=== PATIENT | female | born 1950 | race Caucasian/White ===

== ENCOUNTER 2016-10-30 08:08 | Day surgery (SDC) | payer BC, OTHER ==
[~2016-10-30 08:08] MED LIST: Acetaminophen TAB* 325 MG PO PRN; Buffered Lidocaine 1% SYRIN* 5 ML/SYR SYRINGE INTRADERM ONE
[2016-10-30] MEDS ORDERED: fentaNYL* 50 MCG/ML 2 ML VIAL (100 MCG VIAL) ONE (10:01)
[2016-10-30] MEDS ORDERED: Midazolam* 1 MG/ML 2 ML VIAL (2 MG) ONE ×2 (10:01→10:09)
[2016-10-30 11:05] VITALS: BP 111/60
[2016-10-30] MEDS ORDERED: Cyclopentolate 1% OPTH.SOL* 2 ML BTL ONE (12:14)
[2016-10-30] MEDS ORDERED: Flurbiprofen 0.03% OPTH.SOL* 2.5 ML BTL ONE (12:14)
[2016-10-30] MEDS ORDERED: Lidocaine 2% EPI 1:200000 MPF* 20 ML VIAL ONE (12:14)
[2016-10-30] MEDS ORDERED: Proparacaine 0.5% OPHTH.SOL* 15 ML BTL ONE (12:14)
[2016-10-30] MEDS ORDERED: acetaZOLAMIDE TAB* 250 MG ONE (12:14)
[2016-10-30] MEDS ORDERED: Neomycin/Polymy/Dex OPTH.SUSP* MAXITROL 0.1% 5 ML ONE (12:14)
[2016-10-30] MEDS ORDERED: Lidocaine 1% MPF* 2 ML VIAL ONE (12:14)
[2016-10-30] MEDS ORDERED: Phenylephrine 2.5% OPTH.SOL* 2 ML BTL ONE (12:14)
[2016-10-30] MEDS ORDERED: Povidone Iodine 5% OPTH* 30 ML BTL ONE (12:14)
--- NOTE | 2016-10-30 14:27 | OP ---
OPERATIVE NOTE: DATE OF OPERATION: 10/30/16 DATE OF : 52 SURGEON: Noam Paris MD PREOPERATIVE DIAGNOSIS: Cataract, right eye. POSTOPERATIVE DIAGNOSIS: Cataract, right eye. OPERATIVE PROCEDURE: Phacoemulsification, right eye with IOL. PROCEDURE: The patient was brought to the operating room after being given 1/2% Alcaine with epinep hrine drops in the preoperative area. The eye was prepped and draped in the usual sterile fashion. Sterile drape and eyelid speculum were placed. Again, topical 1/2% Alcaine with epinephrine was gi gil. A paracentesis incision was made at the 9 o'clock position with the No.75 blade. Clear cornea incision 2.2 x 2.2-mm was created at the 12 o'clock position starting at the anterior limbus using the 2.2-mm keratome. The anterior chamber was irrigated with 0.4 mL of 1% non-preservative intracam eral lidocaine and filled with DisCoVisc. A capsulorrhexis was completed using the cystotome and th e Utrata forceps. Hydrodissection was performed with balanced salt solution. The lens nucleus was r emoved with the Phacoemulsification handpiece without incident. Cortex was removed with the irrigat ion-aspiration handpiece. The capsular bag was re-inflated using DisCoVisc and an SN60WF 18.5 impla nt was inserted with the shooter. The irrigation-aspiration handpiece was used to remove all residu al DisCoVisc. The eye was refilled with balanced salt solution and the wound checked and found to b e watertight. Topical Maxitrol drops were given. [id number]/[facility] #: [id number]
== END 2016-10-30 10:59 | disposition home or self-care (01) ==
LOC: OREAST 08:08
PROVIDERS: ATTEND Specialist
DX: H25.811 Combined forms of age-related cataract, right eye (principal); Z79.899 Other long term (current) drug therapy; Z87.891 Personal history of nicotine dependence
CPT/HCPCS: A9270-GY; J2250; J3010; V2632

== ENCOUNTER 2016-11-06 07:44 | Day surgery (SDC) | payer BC ==
[~2016-11-06 07:44] MED LIST changes: +Buffered Lidocaine 0.9% SYRIN* 5 ML/SYR SYRINGE INTRADERM ONE; +Buffered Lidocaine 0.9% SYRIN* 5 ML/SYR SYRINGE ONE; -Buffered Lidocaine 1% SYRIN* 5 ML/SYR SYRINGE INTRADERM ONE; +Cyclopentolate 1% OPTH.SOL* 2 ML BTL ONE; +Flurbiprofen 0.03% OPTH.SOL* 2.5 ML BTL ONE; +Lidocaine 1% MPF* 2 ML VIAL ONE; +Lidocaine 2% EPI 1:200000 MPF* 20 ML VIAL ONE; +Neomycin/Polymy/Dex OPTH.SUSP* MAXITROL 0.1% 5 ML ONE; +Phenylephrine 2.5% OPTH.SOL* 2 ML BTL ONE; +Povidone Iodine 5% OPTH* 30 ML BTL ONE; +Proparacaine 0.5% OPHTH.SOL* 15 ML BTL ONE; +acetaZOLAMIDE TAB* 250 MG ONE
[2016-11-06] MEDS ORDERED: Midazolam* 1 MG/ML 5 ML VIAL (5 MG) ONE (08:48)
[2016-11-06] MEDS ORDERED: fentaNYL* 50 MCG/ML 2 ML VIAL (100 MCG VIAL) ONE (09:12)
[2016-11-06 09:36] VITALS: BP 143/72
--- NOTE | 2016-11-06 09:49 | OP ---
DATE OF OPERATION: 11/06/2016 - [facility] DATE OF : 1950. SURGEON: Noam Paris M.D. PREOPERATIVE DIAGNOSIS: Cataract left eye. POSTOPERATIVE DIAGNOSIS: Cataract left eye. OPERATIVE PROCEDURE: Phacoemulsification left eye with IOL. DESCRIPTION OF PROCEDURE: The patient was brought to the operating room after being given 1/2% Alcaine with epinephrine drops in the preoperative area. The eye was prepped and draped in the usual sterile fashion. Sterile drape and eyelid speculum were placed. Again, topical 1/2% Alcaine with epinephrine was given. A paracentesis incision was made at the 3 o'clock position with the No.75 blade. Clear cornea incision 2.2 x 2.2-mm was created at the 6 o'clock position starting at the anterior limbus using the 2.2-mm keratome. The anterior chamber was irrigated with 0.4 mL of 1% non-preservative intracameral lidocaine and filled with DisCoVisc. A capsulorrhexis was completed using the cystotome and the Utrata forceps. Hydrodissection was performed with balanced salt solution. The lens nucleus was removed with the Phacoemulsification handpiece without incident. Cortex was removed with the irrigation-aspiration handpiece. The capsular bag was re-inflated using DisCoVisc and an SN60WF 19.5 implant was inserted with the shooter. The irrigation-aspiration handpiece was used to remove all residual DisCoVisc. The eye was refilled with balanced salt solution and the wound checked and found to be watertight. Topical Maxitrol drops were given. [id number]/[facility] #: [id number] [facility]
== END 2016-11-06 09:38 | disposition home or self-care (01) ==
LOC: OREAST 07:44
PROVIDERS: ATTEND Specialist
DX: H25.812 Combined forms of age-related cataract, left eye (principal); H43.22 Crystalline deposits in vitreous body, left eye; Z87.891 Personal history of nicotine dependence
CPT/HCPCS: 36415; 86803; A9270-GY; J2250; J3010; V2632

== ENCOUNTER 2018-03-18 13:13 | Day surgery (SDC) | payer BC ==
[~2018-03-18 13:13] MED LIST changes: -Acetaminophen TAB* 325 MG PO PRN; -Buffered Lidocaine 0.9% SYRIN* 5 ML/SYR SYRINGE ONE; -Cyclopentolate 1% OPTH.SOL* 2 ML BTL ONE; -Flurbiprofen 0.03% OPTH.SOL* 2.5 ML BTL ONE; -Lidocaine 1% MPF* 2 ML VIAL ONE; -Lidocaine 2% EPI 1:200000 MPF* 20 ML VIAL ONE; -Neomycin/Polymy/Dex OPTH.SUSP* MAXITROL 0.1% 5 ML ONE; -Phenylephrine 2.5% OPTH.SOL* 2 ML BTL ONE; -Povidone Iodine 5% OPTH* 30 ML BTL ONE; -Proparacaine 0.5% OPHTH.SOL* 15 ML BTL ONE; -acetaZOLAMIDE TAB* 250 MG ONE
[2018-03-18] MEDS ORDERED: ceFAZolin 2 GM PREMIX in ORs 2 GM/50 ML BAG IVPB ONE (13:31)
[2018-03-18] MEDS ORDERED: Midazolam* 1 MG/ML 2 ML VIAL (2 MG) ONE (17:00)
[2018-03-18] MEDS ORDERED: fentaNYL* 50 MCG/ML 2 ML VIAL (100 MCG VIAL) ONE (17:00)
[2018-03-18] MEDS ORDERED: Bupivacaine 0.25% W/EPI* 10 ML SDV ONE (18:06)
[2018-03-18] MEDS ORDERED: PROCHLORPERAZINE INJ 5 MG/ML 2 ML VIAL IV PRN (18:08)
[2018-03-18] MEDS ORDERED: Ondansetron INJ* 2 MG/ML VIAL IV PRN (18:08)
[2018-03-18] MEDS ORDERED: Naloxone* 0.4 MG/ML 1 ML VIAL IV PRN (18:08)
[2018-03-18] MEDS ORDERED: Acetaminophen TAB* 325 MG PO PRN (18:08)
[2018-03-18] MEDS ORDERED: HYDROcodone/ACETAMIN 5-325 MG* 1 TAB PO PRN ×2 (18:08)
[2018-03-18] MEDS ORDERED: fentaNYL* 50 MCG/ML 2 ML VIAL (100 MCG VIAL) IV PRN (18:08)
[2018-03-18] MEDS ORDERED: DiMENhydriNATE IV* 50 MG/ML VIAL IV PUSH PRN (18:08)
[2018-03-18] MEDS ORDERED: Famotidine IV* 10 MG/ML 2 ML (20 mg) ONE (18:30)
[2018-03-18] MEDS ORDERED: Ketorolac INJ* 30 MG/ML 1 ML VIAL ONE (18:30)
[2018-03-18] MEDS ORDERED: Propofol* 10 MG/ML 20 ML BTL IV PUSH ONE (18:30)
[2018-03-18] MEDS ORDERED: Dexamethasone IV* 4 MG/ML 1 ML (4 MG) ONE (18:30)
[2018-03-18] MEDS ORDERED: Lidocaine 2% PF * 5 ML VIAL ONE (18:30)
--- NOTE | 2018-03-18 18:38 | BRIEFOPN ---
Brief Operative Note - Surgery Procedures: Procedures Pre-OP Diagnoses: R groin mass Post-op Diagnosis: same Procedure: excisional biopsy of right groin mass Surgeon: Bertin Asst: Vince Anethesia: GA with LMA EBL: minimal IVF: crystalloid Specimen: r mass c/w lymph node sent fresh Drains: none
[2018-03-18 19:42] VITALS: BP 148/69
== END 2018-03-18 20:00 | disposition home or self-care (01) ==
LOC: OR 13:13
PROVIDERS: ATTEND Surgery
DX: C77.4 Secondary and unspecified malignant neoplasm of inguinal and lower limb lymph nodes (principal); Z87.891 Personal history of nicotine dependence; I10 Essential (primary) hypertension
CPT/HCPCS: 88184; 88185; 88187; 88188; 88189; 88305; 88333; 88341; 88342; J0690; J1100; J1885; J2250; J2704; J3010

== ENCOUNTER 2018-05-17 09:07 | Emergency (ER) | payer BC ==
[2018-05-17] MEDS ORDERED: NS 0.9% 1000 ML* 1,000 ML IV ONE (09:28)
--- NOTE | 2018-05-17 09:39 | ED ---
GI/ HPI - HPI Summary HPI Summary: Pt is a 68 y/o female who presents to the ED c/o N/V/D. She c/o constipation, abdominal distention, and abdominal discomfort for the past 5 days. Last night she began to have N/V, GILL, and lightheadedness. Pt denies any CP, SOB, diarrhea , fever, or urinary symptoms. She took nausea medications this morning. Pt denies taking any iron supplements. 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 Pt sees Dr. Perez for the CA. She had a tumor removed in her groin and possible has a bowel tumor, although she has not received the endoscopy results yet. PMHx HTN and hernias. - History of Current Complaint Chief Complaint: EDAbdPain Time Seen by Provider: 05/17/18 09:24 Stated Complaint: VOMITING/NO BM FOR 5 DAYS Hx Obtained From: Patient Onset/Duration: Started Days Ago - 5, Worse Since Timing: Constant Pain Intensity: 8 Location of Pain: Diffuse Associated Signs and Symptoms: Positive: Nausea, Vomiting, Constipation, Lightheadedness, Abdominal Pain. Negative: Diarrhea, Fever Alleviating Factor(s): Nothing - Additional Pertinent History Primary Care Physician: [id number] - Allergy/Home Medications Allergies/Adverse Reactions: Allergies Allergy/AdvReac Type Severity Reaction Status Date / Time nitrofurantoin Allergy Severe Difficulty Verified 04/20/18 09:47 [From Macrodantin] Breathing bee pollen Allergy Hives/Diff. Verified 05/14/18 08:12 Breathing/I tching bee venom protein (honey bee) Allergy Hives/Diff. Verified 05/14/18 08:12 Breathing/I tching BEES Allergy Severe HIVES, Uncoded 04/07/18 12:42 NECK SWELLS Home Medications: Home Medications Ondansetron TAB* [Zofran 4 MG Tab*] 4 mg PO Q4H PRN 05/17/18 [History Confirmed 05/17/18] Prochlorperazine Maleate 10 mg PO Q6H PRN 05/17/18 [History Confirmed 05/17/18] PMH/Surg Hx/FS Hx/Imm Hx Endocrine/Hematology History: Reports: Hx Anemia - osteopenia Denies: Hx Diabetes, Hx Thyroid Disease Cardiovascular History: Reports: Hx Hypertension - ON MEDICATION FOR, Other Cardiovascular Problems/Disorders - HISTORY OF ANKLE SWELLING IN THE PAST, NONE PRESENTLY Denies: Hx Congestive Heart Failure, Hx Pacemaker/ICD Respiratory History: Denies: Hx Asthma, Hx Chronic Obstructive Pulmonary Disease (COPD) GI History: Reports: Other GI Disorders - hernia repair denies N/V/D NO PAIN Denies: Hx Ulcer History: Denies: Hx Dialysis, Hx Renal Disease, Other Problems/Disorders Musculoskeletal History: Reports: Hx Arthritis - BEGINNING OF HANDS, NECK Denies: Hx Osteoporosis Sensory History: Reports: Hx Cataracts - BILATERAL, Hx Contacts or Glasses - GLASSES Denies: Hx Hearing Aid Opthamlomology History: Reports: Hx Cataracts - BILATERAL, Hx Contacts or Glasses - GLASSES Neurological History: Reports: Hx Migraine - HX OF IN THE PAST Psychiatric History: Denies: Hx Panic Disorder - Cancer History Cancer Type, Location and Year: small cell neuroendocrine carcinoma Hx Chemotherapy: No Hx Radiation Therapy: No - Surgical History Surgery Procedure, Year, and Place: RIGHT SHOULDER ORIF W/ PRE-OP NERVE BLOCK . RIGHT SHOULDER REVERSE REPLACEMENT. HERNIA X 2- WITH MESH. C- SECTION X3. LEFT KNEE MENISCUS REPAIR. CATARACT BILATERAL. 03/18/18 Rt GROIN - LUMP REMOVED & BIOPSY Hx Anesthesia Reactions: No - Immunization History Date of Tetanus Vaccine: Up to date Date of Influenza Vaccine: Fall 2011 Infectious Disease History: No Infectious Disease History: Reports: Hx Shingles Denies: Hx Clostridium Difficile, Hx Hepatitis, Hx Human Immunodeficiency Virus (HIV), Hx of Known/Suspected MRSA, Hx Tuberculosis, Traveled Outside the [place] in Last 30 Days - Family History Known Family History: Negative: Other - colon CA - Social History Alcohol Use: Weekly Hx Substance Use: No Substance Use Type: Reports: None Hx Tobacco Use: Yes Smoking Status (MU): Former Smoker Amount Used/How Often: 2 PPD X 20 YEARS Length of Time of Smoking/Using Tobacco: 20 YEARS Have You Smoked in the Last Year: No Review of Systems Negative: Fever Negative: Chest Pain Negative: Shortness Of Breath Positive: Abdominal Pain, Vomiting, Nausea, Other - constipation, distention. Negative: Diarrhea Genitourinary: Negative Neurological: Other - Lightheadedness Positive: Headache All Other Systems Reviewed And Are Negative: Yes Physical Exam - Summary Physical Exam Summary: Appearance: Well appearing, no pain distress Skin: warm, dry, reflects adequate perfusion Head/face: normal Eyes: EOMI, LOAN ENT: mucous membranes tacky Neck: supple, non-tender Respiratory: CTA, breath sounds present Cardiovascular: RRR, pulses symmetrical Abdomen: non-tender, soft, distended, midline surgical scar, non-reducible midline umbilical hernia with tenderness, some tympany Bowel Sounds: decreased Musculoskeletal: normal, strength/ROM intact Neuro: normal, sensory motor intact, A&Ox3 Triage Information Reviewed: Yes Vital Signs On Initial Exam: Initial Vitals Temp Pulse Resp BP Pulse Ox 98.0 F 71 16 151/83 97 05/17/18 09:14 05/17/18 09:14 05/17/18 09:14 05/17/18 09:14 05/17/18 09:14 Vital Signs Reviewed: Yes Procedures - Procedure Summary Procedure Summary: Soap suds enema. Pt had a BM afterwards with relief. Diagnostics - Vital Signs Vital Signs Temp Pulse Resp BP Pulse Ox 05/17/18 09:14 98.0 F 71 16 151/83 97 - Laboratory Result Diagrams: 05/17/18 09:36 05/17/18 09:36 Lab Statement: Any lab studies that have been ordered have been reviewed, and results considered in the medical decision making process. - Radiology CXR Radiology Interpretation Completed By: Radiologist Summary of Radiographic Findings: NO ACTIVE CARDIOPULMONARY DISEASE. ED physician reviewed radiology report. - CT CT A/P CT Interpretation Completed By: Radiologist Summary of CT Findings: 1. THERE IS DISTENTION WITH MILD DILATATION OF THE ASCENDING AND TRANSVERSE COLON WHICH APPEARS FLUID-FILLED. THERE IS LARGE AMOUNT OF STOOL WITHIN THE DISTAL DESCENDING AND RECTOSIGMOID COLON. 2. THERE IS DIVERTICULOSIS OF THE COLON. 3. THERE IS MILD DISTENTION OF SMALL BOWEL. 4. THERE IS A SMALL AMOUNT OF PERIHEPATIC ASCITES. ED physician reviewed radiology report. - EKG 10:10 Cardiac Rate: Bradycardia - 57 bpm EKG Rhythm: Sinus Rhythm ST Segment: Normal Summary of EKG Findings: Nl axis, nl intervals Re-Evaluation - Re-Evaluation First Eval Re-Evaluation Time: 11:10 Change: Unchanged Comment: Performed a soap suds enema. Second Eval Re-Evaluation Time: 11:50 Change: Improved Comment: Pt had a BM and feels much better. GIGU Course/Dx - Course Course Of Treatment: Nurse's note reviewed. Patient presents with no bowel movement for several days and abdominal distention. It is soft and only minimally tender. There is no definite obstruction but there is air fluid levels proximal to significant constipation. There is no impaction in the rectal vault. I gave the patient soapsuds enema with resulting large bowel movement. Some of the distention relieved. She'll be discharged on bowel regimen with return instructions - Diagnoses Differential Diagnoses - Female: Other - Small bowel obstruction, large bowel obstruction, metastatic cancer, constipation Provider Diagnoses: History of neuroendocrine cancer, Constipation, Vomiting Discharge - Sign-Out/Discharge Documenting (check all that apply): Patient Departure - Discharge - Discharge Plan Condition: Improved Disposition: HOME Prescriptions: Bisacodyl SUPP* [Dulcolax Supp*] 10 mg IL DAILY PRN #7 supp PRN Reason: Constipation Polyethylene Glycol 3350 BTL* [Miralax] 17 g PO TID PRN #1 btl PRN Reason: Constipation Patient Education Materials: Constipation (ED) Referrals: Chris Velasquez MD [Primary Care Provider] - Wolfgang Perez MD [Medical Doctor] - Additional Instructions: Drink plenty of fluids, natural fruit juices such as apple and prune may help. Home Fleet enemas as needed. Return with fever, increased abdominal distention , vomiting, worse or other concerns. - Billing Disposition and Condition Condition: IMPROVED Disposition: Home - Attestation Statements Document Initiated by Boy: Yes Documenting Scribe: Merlyn Celestin Provider For Whom Boy is Documenting (Include Credential): Loyd Cosby MD Scribe Attestation: Merlyn Liu scribed for Loyd Cosby MD on 05/17/18 at 1419. Scribe Documentation Reviewed: Yes Provider Attestation: The documentation as recorded by the Merlyn moran accurately reflects the service I personally performed and the decisions made by me, Loyd Cosby MD Status of Scribe Document: Viewed
[2018-05-17] MEDS ORDERED: Ketorolac INJ* 30 MG/ML 1 ML VIAL IV PUSH ONE (09:42)
[2018-05-17] MEDS ORDERED: Ondansetron INJ* 2 MG/ML VIAL IV ONE (09:42)
[2018-05-17 09:50] LABS: ABS Basophils 0 10^3/ul (0-0.2); ABS Eosinophils 0 10^3/ul (0-0.6); ABS Monocytes 0.1 10^3/ul (0-0.8); ABS Neutrophils 6.5 10^3/ul (1.5-7.7); ABS Nucleated RBC 0 10^3/ul; Eosinophil % 0.5 %; Hematocrit 44 % (35-47); Lymphocyte % 13.3 %; Mean Corpuscular HGB Conc 34 g/dl (31-36); Mean Corpuscular Hemoglobin 32 pg (27-31); Mean Corpuscular Volume 94 fL (80-97); Mean Platelet Volume 8.1 fL (7.4-10.4); Nucleated Red Blood Cells % 0.1; Platelet Count 260 10^3/ul (150-450); Red Blood Count 4.64 10^6/ul (4.00-5.40); Red Cell Distribution Width 14 % (10.5-15); White Blood Count 7.6 10^3/ul (3.5-10.8)
[2018-05-17 10:08] LABS: EGFR Non-African American 115.1 (>60)
[2018-05-17 12:53] VITALS: BP 164/75
== END 2018-05-17 13:10 | disposition home or self-care (01) ==
LOC: ED 09:07
DX: K59.00 Constipation, unspecified (principal); R11.10 Vomiting, unspecified; R00.1 Bradycardia, unspecified; K57.30 Diverticulosis of large intestine without perforation or abscess without bleeding; I10 Essential (primary) hypertension; Z85.89 Personal history of malignant neoplasm of other organs and systems; Z88.1 Allergy status to other antibiotic agents; Z91.030 Bee allergy status; Z87.891 Personal history of nicotine dependence
CPT/HCPCS: 36415; 71045; 74176; 80053; 83605; 83690; 84484; 85025; 86140; 93005; 96374; 96375; 99284; J1885; J2405

== ENCOUNTER → 2018-05-28 07:00 | Day surgery (SDC) | payer BC ==
[~2018-05-28 07:00] MED LIST changes: +Lactated Ringers 1000 ML Bag* 1,000 ML IV SCH; +Lidocaine 1% INJ* 10 MG/ML 30 ML SDV ONE; +Midazolam* 1 MG/ML 2 ML VIAL (2 MG) ONE; +Naloxone* 0.4 MG/ML 1 ML VIAL IV PRN; +Propofol* 10 MG/ML 20 ML BTL ONE; +ceFAZolin 2 GM PREMIX in ORs 2 GM/50 ML BAG IVPB ONE; +fentaNYL* 50 MCG/ML 2 ML VIAL (100 MCG VIAL) ONE
[2018-05-28 08:18] LABS: Hematocrit 38 % (35-47); Hemoglobin 12.9 g/dl (12.0-16.0); Mean Corpuscular HGB Conc 34 g/dl (31-36); Mean Corpuscular Hemoglobin 32 pg (27-31); Mean Corpuscular Volume 95 fL (80-97); Mean Platelet Volume 7.7 fL (7.4-10.4); Platelet Count 192 10^3/ul (150-450); Red Cell Distribution Width 14 % (10.5-15); White Blood Count 3.3 10^3/ul (3.5-10.8)
[2018-05-28 10:05] VITALS: BP 141/71
--- NOTE | 2018-05-28 12:33 | OP ---
CC: Dr. Herber Smith; Dr. Perez* OPERATIVE REPORT: DATE OF OPERATION: 05/28/18 - [facility] DATE OF : 52 SURGEON: Dr. Smith. AIR TOOL OPERATOR: None. ANESTHESIOLOGIST: Dr. Schumacher. ANESTHESIA: LMAC. PRE-OP DIAGNOSIS: Neuroendocrine tumor. POST-OP DIAGNOSIS: Neuroendocrine tumor. OPERATIVE PROCEDURE: Placement of left subclavian PowerPort. DESCRIPTION OF PROCEDURE: The patient was supine on the operating table. After adequate intravenous sedation, compression stockings, Shu Hugger warmer, and intravenous antibiotics, the left chest was prepped with antiseptic and draped in a sterile fashion. Local infiltrative anesthesia was administered. Approximately a 3-cm incision was created in the left subclavian region. Inferior pocket was created and subclavian venipuncture was carried out. Guidewire passed under fluoroscopic guidance. Catheter passed through the peel- away introducer, measured and cut at 25 cm, attached to the port which was sutured in the pocket with 2-0 Prolene. The pocket was closed with 3-0 and 5-0 Vicryl followed by Steri-Strips. The port has good blood return, was flushed with saline solution and heparinized solution. She was brought to the recovery room in good condition. There were no complications, no drains, no pathologic specimens. Sponge and instrument counts correct. Estimated blood loss less than 10 mL. [id number]/[facility] #: [id number] [facility]
--- NOTE | 2018-05-28 23:23 | PRO ---
CC: Dr. Wolfgang Perez; Dr. Chris Velasquez CAPSULE ENDOSCOPY REPORT: DATE OF PROCEDURE: 05/28/18 PRIMARY ONCOLOGIST: Dr. Wolfgang Perez. PRIMARY CARE PHYSICIAN: Dr. Chris Velasquez. PROCEDURE PERFORMED: Complete capsule endoscopy. INDICATION FOR PROCEDURE: Neuroendocrine tumor of uncertain etiology, abnormal PET scan. DESCRIPTION OF PROCEDURE: Risks and benefits of capsule endoscopy discussed with patient including capsule retention and surgical intervention. Capsule was swallowed and images captured. Small bowel capsule endoscopy First gastric image: 00:00:48. First duodenal image: 01:54:03. Gastric transit time: 1 hour and 53 minutes. First ileocecal valve image: 07:23:16. Small-bowel transit time: About 6 hours and 30 minutes. Preparation is good with small amounts of retained debris and bubbles, which can limit the sensitivity of the study. The study is complete to the terminal ileal valve. The terminal ileal valve is identified but capsule study concludes in TI. Gastric images are limited. No fresh or old blood seen. Small-bowel visualized well. Villi are normal in height without endoscopic features of celiac disease. No masses are seen. No AVMs are seen. No active bleeding. No fresh or old blood is seen on the entire exam. No evidence of Crohn's or inflammatory bowel disease present. Colonic images are not obtained as the capsule study terminates at the ileocecal valve. IMPRESSION: 1. Complete capsule endoscopy. 2. No evidence of small-bowel masses, lesions, or metastasis. 3. Study complete to ileocecal valve only. RECOMMENDATIONS: The capsule does terminate at the ileocecal valve. The capsule is oscillating at the valve area. Colonic mucosa can briefly be seen. I did order an abdominal x-ray series roughly 7 to 10 days later which did not reveal any evidence of a retained endo capsule. I discussed the case with Dr. Wolfgang Perez, the patient's primary oncologist. If there was a high threshold for small-bowel disease in the distal portion where the capsule is oscillating, we would recommend retrograde enteroscopy, but given the good look we did get throughout the entire small-bowel, I feel that there currently is no evidence for small-bowel etiology for her poorly differentiated neuroendocrine tumor. [id number]/[facility] #: [id number] [facility]
== END | disposition home or self-care (01) ==
LOC: OR 07:00
PROVIDERS: ATTEND Surgery
DX: C7A.1 Malignant poorly differentiated neuroendocrine tumors (principal); K59.09 Other constipation; I10 Essential (primary) hypertension; Z87.891 Personal history of nicotine dependence
CPT/HCPCS: 36415; 71045; 76000; 85027; C1788; J0690; J2250; J2704; J3010

== ENCOUNTER 2018-08-04 17:19 | Inpatient (IN) | payer BC ==
[2018-08-04] MEDS ORDERED: Acetaminophen TAB* 325 MG PO PRN (17:24)
[2018-08-04] MEDS ORDERED: Ondansetron INJ* 2 MG/ML VIAL IV PRN (17:42)
[2018-08-04] MEDS ORDERED: LORazepam INJ* 2 MG/ML 1 ML VIAL IV PUSH PRN (17:42)
[2018-08-04] MEDS ORDERED: Enoxaparin(*) 40 MG/0.4 ML SYR SUBCUT SCH (18:00)
[2018-08-04] MEDS: Enoxaparin(*) 40 MG/0.4 ML SYR SUBCUT SCH (20:18)
[2018-08-04 20:23] LABS: Hematocrit 35 % (35-47); Hemoglobin 12.1 g/dl (12.0-16.0); Mean Corpuscular HGB Conc 34 g/dl (31-36); Mean Corpuscular Hemoglobin 35 pg (27-31); Mean Corpuscular Volume 102 fL (80-97); Mean Platelet Volume 7.7 fL (7.4-10.4); Platelet Count 161 10^3/ul (150-450); Red Blood Count 3.43 10^6/ul (4.00-5.40); Red Cell Distribution Width 21 % (10.5-15); White Blood Count 1.7 10^3/ul (3.5-10.8)
[2018-08-04 20:28] LABS: ABS Basophils 0 10^3/ul (0-0.2); ABS Eosinophils 0 10^3/ul (0-0.6); ABS Lymphocytes 0.7 10^3/ul (1.0-4.8); ABS Monocytes 0.3 10^3/ul (0-0.8); ABS Neutrophils 0.7 10^3/ul (1.5-7.7); ABS Nucleated RBC 0 10^3/ul; Eosinophil % 0.2 %; Lymphocyte % 39.6 %; Nucleated Red Blood Cells % 0.5
[2018-08-04 20:34] LABS: Albumin 4.6 g/dL (3.2-5.2); Albumin/Globulin Ratio 1.3 (1-3); BUN/Creatinine Ratio 21.5 (8-20); Calcium 10.3 mg/dL (8.6-10.3); EGFR African American 87.8 (>60); EGFR Non-African American 72.6 (>60); Globulin 3.5 g/dL (2-4); Potassium 4.3 mmol/L (3.5-5.0); Total Bilirubin 0.5 mg/dL (0.2-1.0); Total Protein 8.1 g/dL (6.4-8.9)
[2018-08-04] MEDS: NS 0.9% 1000 ML** 1,000 ML IV SCH (21:35)
[2018-08-04] MEDS: Cefepime 2 GM in Dextrose(*) 2 GM/50 ML BAG IV SCH (21:36)
[2018-08-05] MEDS: Cefepime 2 GM in Dextrose(*) 2 GM/50 ML BAG IV SCH ×3 (04:26→20:32)
[2018-08-05 04:43] LABS: Hematocrit 28 % (35-47); Hemoglobin 9.8 g/dl (12.0-16.0); Mean Corpuscular HGB Conc 35 g/dl (31-36); Mean Corpuscular Hemoglobin 36 pg (27-31); Mean Corpuscular Volume 103 fL (80-97); Mean Platelet Volume 7.4 fL (7.4-10.4); Platelet Count 133 10^3/ul (150-450); Red Blood Count 2.72 10^6/ul (4.00-5.40); Red Cell Distribution Width 21 % (10.5-15); White Blood Count 1.8 10^3/ul (3.5-10.8)
[2018-08-05 04:44] LABS: ABS Basophils 0 10^3/ul (0-0.2); ABS Eosinophils 0 10^3/ul (0-0.6); ABS Lymphocytes 0.9 10^3/ul (1.0-4.8); ABS Monocytes 0.4 10^3/ul (0-0.8); ABS Neutrophils 0.5 10^3/ul (1.5-7.7); ABS Nucleated RBC 0 10^3/ul; Eosinophil % 1.8 %; Lymphocyte % 48.9 %; Nucleated Red Blood Cells % 0.1
[2018-08-05 04:55] LABS: Albumin 3.5 g/dL (3.2-5.2); Albumin/Globulin Ratio 1.3 (1-3); BUN/Creatinine Ratio 23.4 (8-20); Calcium 8.2 mg/dL (8.6-10.3); EGFR African American 90.5 (>60); EGFR Non-African American 74.8 (>60); Globulin 2.6 g/dL (2-4); Magnesium 1.7 mg/dL (1.9-2.7); Potassium 3.6 mmol/L (3.5-5.0); Total Bilirubin 0.4 mg/dL (0.2-1.0); Total Protein 6.1 g/dL (6.4-8.9)
[2018-08-05] MEDS: NS 0.9% 1000 ML** 1,000 ML IV SCH ×2 (10:32→23:44)
[2018-08-05] MEDS ORDERED: Prochlorperazine TAB* 10 MG PO PRN (11:28)
--- NOTE | 2018-08-05 11:49 | PN ---
Progress Note - Progress Note Date of Service: 08/05/18 SOAP: Subjective: []Feeling a lot better then yesterday. Less abd. pain however had diarrhea all night. "I no longer would lay down then had to get back up." No nausea. Wants to eat. No further chills. Medication: Acetaminophen (Tylenol Tab*) 650 mg PO Q4H PRN PRN Reason: FEVER/HEADACHE Last Admin: 08/04/18 20:17 Dose: 650 mg Enoxaparin Sodium (Lovenox(*)) 40 mg SUBCUT 2000 [facility] Last Admin: 08/04/18 20:18 Dose: 40 mg Heparin Sodium (Porcine) (Heparin Flush Port (Ivad)) 5 ml FLUSH DAILY [facility]; Protocol Last Admin: 08/05/18 07:32 Dose: Not Given Cefepime HCl (Maxipime 2 Gm In Dextrose Duplex (*)) 2 gm in 50 mls @ 100 mls/ hr IV Q8H [facility] Last Admin: 08/05/18 04:26 Dose: 100 mls/hr Sodium Chloride (Ns 0.9% 1000 Ml) 1,000 mls @ 100 mls/hr IV PER RATE [facility] Last Admin: 08/05/18 10:32 Dose: 100 mls/hr Lorazepam (Ativan Inj*) 0.5 mg IV PUSH Q4H PRN PRN Reason: Anxiety/insomnia/nausea Ondansetron HCl (Zofran Inj*) 4 mg IV Q4H PRN PRN Reason: NAUSEA Last Admin: 08/04/18 20:18 Dose: 4 mg Oxybutynin Chloride (Ditropan Tab*) 5 mg PO BID [facility] Prochlorperazine (Compazine Tab*) 10 mg PO Q6H PRN PRN Reason: NAUSEA Objective: [] Vital Signs Temp Pulse Resp BP Pulse Ox 98.3 F 66 18 104/43 96 08/05/18 07:19 08/05/18 07:19 08/05/18 08:00 08/05/18 10:38 08/05/18 07:19 A&Ox3, EOMI, PERRLA, neuro grossly non-focal HRR, S1S2 LS clear bilat. +BS, abd. soft, mildly tender to RLQ, no rebound tenderness, tymphany throughout No edema noted Laboratory Results - last 24 hr 08/04/18 08/04/18 08/04/18 19:46 19:46 19:46 WBC 1.7 L RBC 3.43 L Hgb 12.1 Hct 35 MCV 102 H MCH 35 H MCHC 34 RDW 21 H Plt Count 161 MPV 7.7 Neut % (Auto) 39.4 Lymph % (Auto) 39.6 Banner % (Auto) 20.2 Eos % (Auto) 0.2 Baso % (Auto) 0.6 Absolute Neuts (auto) 0.7 L Absolute Lymphs (auto) 0.7 L Absolute Monos (auto) 0.3 Absolute Eos (auto) 0 Absolute Basos (auto) 0 Absolute Nucleated RBC 0 Nucleated RBC % 0.5 Sodium 131 L Potassium 4.3 Chloride 93 L Carbon Dioxide 28 Anion Gap 10 BUN 17 Creatinine 0.79 Est GFR ( Amer) 87.8 Est GFR (Non-Af Amer) 72.6 BUN/Creatinine Ratio 21.5 H Glucose 124 H Lactic Acid 0.7 Calcium 10.3 Magnesium 2.0 Total Bilirubin 0.50 AST 21 ALT 25 Alkaline Phosphatase 71 Total Protein 8.1 Albumin 4.6 Globulin 3.5 Albumin/Globulin Ratio 1.3 08/05/18 08/05/18 04:25 04:25 WBC 1.8 L RBC 2.72 L Hgb 9.8 L Hct 28 L MCV 103 H MCH 36 H MCHC 35 RDW 21 H Plt Count 133 L MPV 7.4 Neut % (Auto) 25.5 Lymph % (Auto) 48.9 Banner % (Auto) 23.0 Eos % (Auto) 1.8 Baso % (Auto) 0.8 Absolute Neuts (auto) 0.5 L Absolute Lymphs (auto) 0.9 L Absolute Monos (auto) 0.4 Absolute Eos (auto) 0 Absolute Basos (auto) 0 Absolute Nucleated RBC 0 Nucleated RBC % 0.1 Sodium 133 L Potassium 3.6 Chloride 101 Carbon Dioxide 25 Anion Gap 7 BUN 18 Creatinine 0.77 Est GFR ( Amer) 90.5 Est GFR (Non-Af Amer) 74.8 BUN/Creatinine Ratio 23.4 H Glucose 103 H Lactic Acid Calcium 8.2 L Magnesium 1.7 L Total Bilirubin 0.40 AST 17 ALT 17 Alkaline Phosphatase 51 Total Protein 6.1 L Albumin 3.5 Globulin 2.6 Albumin/Globulin Ratio 1.3 Microbiology 08/05/18 03:30 Stool Gross Appearance - Final Stool C. difficile DNA Amplification - Final 027 Presumptive NEGATIVE Toxigenic C.diff NEGATIVE Assessment: []68 yo female with neuroendocrine cancer on Carboplatin/Etoposide and s/p RT to right groin presenting with neutropenia, chills, and severe diarrhea with work-up revealing ileus. She was seen 08/03/18 as well due to temp. 100.3 with neutropenia and surveillance cultures were obtained (she was on Bactrim for UTI ) that this AM reveal 1 of 4 bottles positive for gram + cocci, MRSA negative. Plan: []1. Febrile neutropenia: 1/4 bottles (from LCW port) from 08/03/18 positive for gram + cocci, potential contaminant, however with GI symptoms could be translocation - continue Cefepime for now, monitor cultures to direct further plan of care - cultures from yesterday pending 2. Ileus: appears to be resolving, c.diff negative - repeat abd. x-ray for f/u - advance diet to clears, hold off on immodium for now however - suspect this is related to RT as she has been on laxatives at home for some time, although at this time we can not rule out infectious - will send stool cultures to be thorough 3. Neutropenia secondary to chemotherapy: may be exacerbated by RT to pelvic area - continue iso, monitor daily counts Dispo: dependent on cultures, however recommend ANC >1000 as well
[2018-08-05] MEDS ORDERED: Magnesium Sulfate 2 GM IV* 2 GM/50 ML BAG IVPB ONE (11:50)
[2018-08-05] MEDS: Enoxaparin(*) 40 MG/0.4 ML SYR SUBCUT SCH (20:32)
[2018-08-05] MEDS: Oxybutynin TAB* 5 MG PO SCH (20:32)
[2018-08-06] MEDS: Cefepime 2 GM in Dextrose(*) 2 GM/50 ML BAG IV SCH ×3 (04:49→22:22)
[2018-08-06 08:38] LABS: ABS Basophils 0 10^3/ul (0-0.2); ABS Eosinophils 0 10^3/ul (0-0.6); ABS Lymphocytes 0.7 10^3/ul (1.0-4.8); ABS Monocytes 0.3 10^3/ul (0-0.8); ABS Neutrophils 0.3 10^3/ul (1.5-7.7); ABS Nucleated RBC 0 10^3/ul; Eosinophil % 2.4 %; Hematocrit 28 % (35-47); Hemoglobin 9.5 g/dl (12.0-16.0); Lymphocyte % 53.3 %; Mean Corpuscular HGB Conc 34 g/dl (31-36); Mean Corpuscular Hemoglobin 36 pg (27-31); Mean Corpuscular Volume 105 fL (80-97); Mean Platelet Volume 7.4 fL (7.4-10.4); Nucleated Red Blood Cells % 0.2; Platelet Count 141 10^3/ul (150-450); Red Blood Count 2.66 10^6/ul (4.00-5.40); Red Cell Distribution Width 21 % (10.5-15); White Blood Count 1.3 10^3/ul (3.5-10.8)
[2018-08-06] MEDS: Oxybutynin TAB* 5 MG PO SCH ×2 (09:00→22:22)
[2018-08-06 09:05] LABS: Albumin 3.3 g/dL (3.2-5.2); Albumin/Globulin Ratio 1.4 (1-3); BUN/Creatinine Ratio 13.2 (8-20); Calcium 7.9 mg/dL (8.6-10.3); EGFR African American 139.2 (>60); EGFR Non-African American 115.1 (>60); Globulin 2.4 g/dL (2-4); Potassium 4.6 mmol/L (3.5-5.0); Total Bilirubin 0.3 mg/dL (0.2-1.0); Total Protein 5.7 g/dL (6.4-8.9)
--- NOTE | 2018-08-06 11:00 | PN ---
Progress Note - Progress Note Date of Service: 08/06/18 SOAP: Subjective: []Feels fine, a lot better then admission, however more bloated today than yesterday. No BM today. Cont.'s to ambulate. No pain and passing gas. No other complaints. Medications: Acetaminophen (Tylenol Tab*) 650 mg PO Q4H PRN PRN Reason: FEVER/HEADACHE Last Admin: 08/04/18 20:17 Dose: 650 mg Enoxaparin Sodium (Lovenox(*)) 40 mg SUBCUT 2000 [facility] Last Admin: 08/05/18 20:32 Dose: 40 mg Heparin Sodium (Porcine) (Heparin Flush Port (Ivad)) 5 ml FLUSH DAILY [facility]; Protocol Last Admin: 08/06/18 09:00 Dose: 5 ml Cefepime HCl (Maxipime 2 Gm In Dextrose Duplex (*)) 2 gm in 50 mls @ 100 mls/ hr IV Q8H [facility] Last Admin: 08/06/18 04:49 Dose: 100 mls/hr Sodium Chloride (Ns 0.9% 1000 Ml) 1,000 mls @ 100 mls/hr IV PER RATE [facility] Last Admin: 08/05/18 23:44 Dose: 100 mls/hr Lorazepam (Ativan Inj*) 0.5 mg IV PUSH Q4H PRN PRN Reason: Anxiety/insomnia/nausea Ondansetron HCl (Zofran Inj*) 4 mg IV Q4H PRN PRN Reason: NAUSEA Last Admin: 08/04/18 20:18 Dose: 4 mg Oxybutynin Chloride (Ditropan Tab*) 5 mg PO BID [facility] Last Admin: 08/06/18 09:00 Dose: 5 mg Prochlorperazine (Compazine Tab*) 10 mg PO Q6H PRN PRN Reason: NAUSEA Objective: [] Vital Signs Temp Pulse Resp BP Pulse Ox 97.9 F 68 18 105/53 95 08/06/18 07:30 08/06/18 07:31 08/06/18 08:00 08/06/18 07:31 08/06/18 07:31 A&Ox3, EOMI, neuro grossly non-focal HRR, S1S2, no murmur noted LS clear bilat. +BSx4, abd. round and soft with mild tenderness to RLQ, tymphany throughout No peripheral edema noted Laboratory Results - last 24 hr 08/06/18 08/06/18 08:15 08:15 WBC 1.3 L RBC 2.66 L Hgb 9.5 L Hct 28 L MCV 105 H MCH 36 H MCHC 34 RDW 21 H Plt Count 141 L MPV 7.4 Neut % (Auto) 23.5 Lymph % (Auto) 53.3 Steele % (Auto) 19.5 Eos % (Auto) 2.4 Baso % (Auto) 1.3 Absolute Neuts (auto) 0.3 L Absolute Lymphs (auto) 0.7 L Absolute Monos (auto) 0.3 Absolute Eos (auto) 0 Absolute Basos (auto) 0 Absolute Nucleated RBC 0 Nucleated RBC % 0.2 Sodium 136 Potassium 4.6 Chloride 108 Carbon Dioxide 25 Anion Gap 3 BUN 7 Creatinine 0.53 Est GFR ( Amer) 139.2 Est GFR (Non-Af Amer) 115.1 BUN/Creatinine Ratio 13.2 Glucose 95 Calcium 7.9 L Total Bilirubin 0.30 AST 17 ALT 15 Alkaline Phosphatase 46 Total Protein 5.7 L Albumin 3.3 Globulin 2.4 Albumin/Globulin Ratio 1.4 Assessment: []68 yo female with neuroendocrine cancer on Carboplatin/Etoposide and s/p RT to right groin presenting with neutropenia, chills, and severe diarrhea with work-up revealing ileus. One of four blood cultures from 08/03 +staph hominos, likely contaminant. All other cultures negative thus far. Plan: []1. Ileus: no BM today and slightly more symptomatic (bloating) however still passing gas - no change today, cont. to monitor closely, enc.'d ambulation, OK to cont. clears - does not appear to be a neutropenic typhilitis as she remains afebrile over the last 24 hrs, however needs continued monitoring due to some obstructive symptoms today 2. Neutropenia: consistent with tx. (day 16 today C4) and RT - cont reverse iso., daily labs Dispo: will need improvement bowels and ANC to >1000 prior to d/c home
[2018-08-06] MEDS: NS 0.9% 1000 ML** 1,000 ML IV SCH ×2 (13:12→22:36)
[2018-08-06] MEDS: Enoxaparin(*) 40 MG/0.4 ML SYR SUBCUT SCH (22:22)
[2018-08-07] MEDS: Cefepime 2 GM in Dextrose(*) 2 GM/50 ML BAG IV SCH ×3 (04:19→21:08)
[2018-08-07 06:40] LABS: Hematocrit 24 % (35-47); Hemoglobin 8.3 g/dl (12.0-16.0); Mean Corpuscular HGB Conc 34 g/dl (31-36); Mean Corpuscular Hemoglobin 36 pg (27-31); Mean Corpuscular Volume 104 fL (80-97); Mean Platelet Volume 7.4 fL (7.4-10.4); Platelet Count 130 10^3/ul (150-450); Red Blood Count 2.31 10^6/ul (4.00-5.40); Red Cell Distribution Width 21 % (10.5-15); White Blood Count 1.3 10^3/ul (3.5-10.8)
[2018-08-07 07:08] LABS: ABS Basophils 0 10^3/ul (0-0.2); ABS Eosinophils 0 10^3/ul (0-0.6); ABS Lymphocytes 0.7 10^3/ul (1.0-4.8); ABS Monocytes 0.2 10^3/ul (0-0.8); ABS Neutrophils 0.3 10^3/ul (1.5-7.7); ABS Nucleated RBC 0 10^3/ul; Eosinophil % 3.4 %; Lymphocyte % 55.6 %; Nucleated Red Blood Cells % 0; Polychromasia 1+
[2018-08-07] MEDS: Oxybutynin TAB* 5 MG PO SCH ×2 (08:23→21:09)
[2018-08-07] MEDS: NS 0.9% 1000 ML** 1,000 ML IV SCH ×2 (12:15→23:25)
[2018-08-07] MEDS ORDERED: guaiFENesin LIQ* 100 MG/5 ML UDC PO PRN (17:00)
[2018-08-07] MEDS: Enoxaparin(*) 40 MG/0.4 ML SYR SUBCUT SCH (21:09)
[2018-08-08] MEDS: Cefepime 2 GM in Dextrose(*) 2 GM/50 ML BAG IV SCH ×3 (04:41→19:29)
[2018-08-08 05:04] LABS: Hematocrit 24 % (35-47); Hemoglobin 8.1 g/dl (12.0-16.0); Mean Corpuscular HGB Conc 34 g/dl (31-36); Mean Corpuscular Hemoglobin 36 pg (27-31); Mean Corpuscular Volume 104 fL (80-97); Mean Platelet Volume 6.8 fL (7.4-10.4); Platelet Count 134 10^3/ul (150-450); Red Blood Count 2.27 10^6/ul (4.00-5.40); Red Cell Distribution Width 21 % (10.5-15); White Blood Count 1.4 10^3/ul (3.5-10.8)
[2018-08-08 05:06] LABS: ABS Neutrophils 0.4 10^3/ul (1.5-7.7)
[2018-08-08 05:28] LABS: ABS Basophils 0 10^3/ul (0-0.2); ABS Eosinophils 0.1 10^3/ul (0-0.6); ABS Lymphocytes 0.8 10^3/ul (1.0-4.8); ABS Monocytes 0.2 10^3/ul (0-0.8); ABS Nucleated RBC 0 10^3/ul; Eosinophil % 3.9 %; Lymphocyte % 52.4 %; Nucleated Red Blood Cells % 0.2
[2018-08-08] MEDS: Oxybutynin TAB* 5 MG PO SCH ×2 (08:20→19:29)
[2018-08-08] MEDS: NS 0.9% 1000 ML** 1,000 ML IV SCH ×2 (10:37→19:28)
[2018-08-08] MEDS: GuaiFENesin DM* 5 ML UDC PO PRN ×2 (17:50→23:57)
[2018-08-08] MEDS: Enoxaparin(*) 40 MG/0.4 ML SYR SUBCUT SCH (19:29)
[2018-08-09] MEDS: NS 0.9% 1000 ML** 1,000 ML IV SCH (04:49)
[2018-08-09] MEDS: Cefepime 2 GM in Dextrose(*) 2 GM/50 ML BAG IV SCH (04:49)
[2018-08-09 05:25] LABS: Hematocrit 25 % (35-47); Hemoglobin 8.4 g/dl (12.0-16.0); Mean Corpuscular HGB Conc 34 g/dl (31-36); Mean Corpuscular Hemoglobin 36 pg (27-31); Mean Corpuscular Volume 104 fL (80-97); Mean Platelet Volume 7.4 fL (7.4-10.4); Platelet Count 141 10^3/ul (150-450); Red Blood Count 2.35 10^6/ul (4.00-5.40); Red Cell Distribution Width 21 % (10.5-15); White Blood Count 1.9 10^3/ul (3.5-10.8)
[2018-08-09 05:56] LABS: ABS Basophils 0 10^3/ul (0-0.2); ABS Eosinophils 0.1 10^3/ul (0-0.6); ABS Lymphocytes 0.8 10^3/ul (1.0-4.8); ABS Monocytes 0.2 10^3/ul (0-0.8); ABS Neutrophils 0.8 10^3/ul (1.5-7.7); ABS Nucleated RBC 0 10^3/ul; Eosinophil % 3.2 %; Lymphocyte % 41.8 %; Nucleated Red Blood Cells % 0.2
[2018-08-09] MEDS: Oxybutynin TAB* 5 MG PO SCH (09:04)
[2018-08-09] MEDS: GuaiFENesin DM* 5 ML UDC PO PRN (09:06)
[2018-08-09 11:54] VITALS: BP 137/72
--- NOTE | 2018-08-09 22:10 | DS ---
DISCHARGE SUMMARY: DATE OF ADMISSION: 08/04/18 DATE OF DISCHARGE: 08/09/18 REASON FOR CONSULTATION: Nausea, vomiting, diarrhea, and neutropenia. HISTORY: Georgia Leon is a 68-year-old female who had noticed a lump in the right groin. This was biopsied in March 2018 and revealed poorly differentiated neuroendocrine carcinoma, small cell cancer. Staging revealed no significant areas of abnormality otherwise. There was a small lymph node in the neck on PET scan which was biopsied and negative. There were a couple of areas of slight activity in the mid ileum. Capsular endoscopy did not reveal any small bowel lesions. The patient was started on chemotherapy with carboplatin and etoposide on 05/13/18 and has currently received a total of 4/6 planned cycles. She had a course of radiation therapy to the right inguinal region which finished the day of this admission. The patient had a low-grade fever to 100.3 on 08/02/18 and was started on Bactrim. She was found to be neutropenic without significant fever. She notified our office of abdominal pain and nausea. She was having severe diarrhea with the abdominal pain. She was found to be significantly neutropenic and decision was made to admit her into the hospital because of the above findings and because of 1/4 bottles being positive for a strep variant which was felt potentially to be a contaminant. HOSPITAL COURSE: She was brought into the hospital with uncontrolled nausea and vomiting, uncontrolled diarrhea as well as slightly elevated temperatures up to 100.3. Possibility of viral enteritis versus colitis versus small bowel obstruction were considered. She was given IV fluids along with cefepime IV antibiotic. She was initially kept n.p.o., p.r.n. antiemetics were given, antidiarrheals were held until the C. diff was negative. During the hospitalization, she had no further fevers. She continued to have some abdominal pain and cramping, but no further diarrhea, in fact no bowel movements for several days. She subsequently did have some looser stools on the day of discharge and the day before after her diet was advanced to soft diet from just n.p.o. and then clear liquids. Cultures remained negative. CBC showed a slow but steady rise in terms of her white count and ANC. Her white count on admission was 1700 dipping to 1300 and then up to 1900 at discharge, which is day 18 status post her most recent chemotherapy. ANC had fallen as low as 300, was 400 the day prior to discharge, and 800 at the time of discharge. PHYSICAL EXAMINATION: A 68-year-old female with stable vital signs, afebrile. Lungs: Clear. Heart: Regular rate and rhythm. Abdomen: Mild tenderness especially in the right lower quadrant, but no guarding or rebound. No masses or organomegaly. MEDICATIONS: At the time of discharge included: 1. Oxybutynin 5 mg daily. 2. Linzess daily. 3. Hydrocodone with APAP 1 q.4 hours p.r.n. pain. 4. In addition, she was taking vaginal Premarin cream, multivitamin, cholecalciferol, p.r.n. Zomig, p.r.n. Compazine, p.r.n. Zofran. DISCHARGE DIAGNOSES: 1. Small bowel obstruction, partial versus mechanical ileus, which has significantly improved clinically and she is now able to tolerate a soft diet. Abdominal x-rays through 08/07/18 continued to show an unchanged pattern. 2. Enteritis/diarrhea, significantly improved. 3. Neutropenia. ANC increased to 800 and afebrile x5 days. 4. Neuroendocrine carcinoma, due for next cycle of chemotherapy mid week and decision will be made at followup office visit on 08/11/18 as to whether or not this will be feasible. [id number]/[facility] #: [id number] MTDD
== END 2018-08-09 13:15 | disposition home or self-care (01) | DRG 660 ==
LOC: MED 18:58
PROVIDERS: ADMIT Internal Medicine Hematology & Oncology; ATTEND Internal Medicine Hematology & Oncology
DX: D70.1 Agranulocytosis secondary to cancer chemotherapy (principal); C7A.8 Other malignant neuroendocrine tumors; K56.7 Ileus, unspecified; K56.600 Partial intestinal obstruction, unspecified as to cause; I10 Essential (primary) hypertension; R50.81 Fever presenting with conditions classified elsewhere; K52.9 Noninfective gastroenteritis and colitis, unspecified; D70.9 Neutropenia, unspecified; N32.81 Overactive bladder; M19.90 Unspecified osteoarthritis, unspecified site; G43.909 Migraine, unspecified, not intractable, without status migrainosus; Z96.611 Presence of right artificial shoulder joint; Z88.8 Allergy status to other drugs, medicaments and biological substances; Z91.030 Bee allergy status; Z79.891 Long term (current) use of opiate analgesic; Z79.899 Other long term (current) drug therapy; Z87.891 Personal history of nicotine dependence; Z82.49 Family history of ischemic heart disease and other diseases of the circulatory system; Z83.3 Family history of diabetes mellitus; Z80.3 Family history of malignant neoplasm of breast; Z80.42 Family history of malignant neoplasm of prostate
CPT/HCPCS: 36415; 74019; 80053; 83605; 83735; 85025; 87040; 87045; 87046; 87077; 87493; 87899; 99222; 99232; A9270-GY; J0692; J1642; J1650; J2405; J3475